=== PATIENT | female | born 1960 | race Caucasian/White ===

== ENCOUNTER → 2022-04-04 | Outpatient (CLI) | payer SELFPAY, BC ==
--- NOTE | 2022-04-04 17:53 | MRI_ITS ---
STUDY: MR Brain WO/W Contrast 04/04/2022 8:24 PM REASON FOR EXAM: Female, 61 years old. SENSORY-NEURAL HEARING LOSS,ASYMMETRICAL COMPARISON: None TECHNIQUE: Standardized multiplanar fat and water weighted pulse sequences were obtained. MR Brain WO/W Contrast: IV 25mL CLARISCAN Contrast FINDINGS: There is mild cerebral atrophy with widening of the extra-axial spaces and ventricular dilatation. There are a limited number of small white matter hyperintensities, distributed throughout the deep white matter tracts of the cerebral hemispheres, consistent with mild chronic white matter ischemic changes. There is mild prominence of the vermian folia, consistent with atrophy of the vermis. The cerebellar hemispheres are normal. Normal bilateral basal ganglia. Normal thalami. There is no extra-axial fluid accumulation. Normal flow voids within the major intracranial circulation suggesting patency by spin echo criteria. Normal sella turcica, pituitary gland, infundibular stalk, optic chiasm and hypothalamus. Normal tectal plate and pineal gland. Normal midbrain, lashawn and medulla. Normal basal cisterns. Normal bilateral temporal bones. Normal bilateral internal auditory canals. No demonstrated orbital abnormality, within the constraints of a routine brain study. Normal visualized paranasal sinuses. Normal calvarium and skull base. Normal visualized soft tissue structures. Normal visualized upper cervical spine. Aspect score 10 MRI/Brain W/WO Contrast IMPRESSION: (NOT LISTED IN ORDER OF SIGNIFICANCE) There are no acute intracranial findings. Electronically Signed: Cliff Dunn MD at 20:25 EST ,
[2022-04-05 08:10] LABS: CREATININE FINGERSTICK < 0.90 mg/dL (0.55-1.02); EGFR FINGERSTICK > 60 mL/min (>60)
== END | disposition home or self-care (01) ==
LOC: MRI 17:36
DX: G31.9 Degenerative disease of nervous system, unspecified (principal); H90.3 Sensorineural hearing loss, bilateral
CPT/HCPCS: 70553; A9575